=== PATIENT | female | born 1995 | race African-American/Black ===

== ENCOUNTER 2023-05-06 09:06 | Emergency (ER) | payer MEDICAID ==
[~2023-05-06] VITALS: Ht 165.1 cm; Wt 78.5 kg
[2023-05-06 09:11] VITALS: BP 144/100; PULSE 58; RESP 20; TEMP 97.8; O2SAT 100
[2023-05-06 09:31] VITALS: O2SAT 100
[2023-05-06] MEDS ORDERED: ONDANSETRON 4 MG/2 ML VIAL IVP ONE (10:35)
[2023-05-06] MEDS ORDERED: NACL 0.9% 1,000 ML IV SCH (10:35)
[2023-05-06] MEDS ORDERED: KETOROLAC 30 MG/ML VIAL IVP ONE (10:35)
[2023-05-06 10:51] LABS: APPEARANCE,URINE CLEAR (CLEAR); BILIRUBIN,URINE NEGATIVE (NEGATIVE); BLOOD, URINE NEGATIVE (NEGATIVE); COLOR,URINE YELLOW (YELLOW); LEUKOCYTE ESTERASE ,URINE NEGATIVE (NEGATIVE); NITRITE, URINE NEGATIVE (NEGATIVE); PH,URINE 8.5 (5.0-9.0); PROTEIN,URINE NEGATIVE (NEGATIVE); UGLUCOSE NEGATIVE (NEGATIVE); UROBILINOGEN,URINE 0.2 EU/dL (0.2 - 1)
[2023-05-06 11:32] VITALS: O2SAT 100
[2023-05-06 11:47] LABS: BASOPHILS % (AUTO) 0.3 % (0.0-2.0); EOSINOPHILS % (AUTO) 0.7 % (0.0-4.0); HEMATOCRIT 36.1 % (36-48); HEMOGLOBIN 12.1 g/dL (12.0-16.0); LYMPHOCYTES # (AUTO) 1.9 K/uL (2.5-16.5); LYMPHOCYTES % (AUTO) 40.2 % (20.5-51.1); MEAN CORPUSCULAR HEMOGLOBIN 30 pg (27-31); MEAN CORPUSCULAR HGB CONC 33 g/dL (33-37); MEAN CORPUSCULAR VOLUME 90.4 fL (80-94); MONOCYTES # (AUTO) 0.3 K/uL (0.8-1.0); NEUTROPHILS # (AUTO) 2.5 K/uL (1.8-7.7); NEUTROPHILS % (AUTO) 52.8 % (42.2-75.2); PLATELET COUNT (AUTO) 281 K/uL (140-450); RED BLOOD CELL COUNT(AUTO) 3.99 MIL/uL (4.20-5.40); RED CELL DISTRIBUTION WIDTH 13.5 % (11.6-13.7); WHITE BLOOD COUNT (AUTO) 4.8 K/uL (4.8-10.8)
[2023-05-06 12:06] LABS: ALBUMIN 3.6 g/dL (3.4-5.0); CALCIUM 8.1 mg/dL (8.5-10.1); CARBON DIOXIDE 27.3 mmol/L (21-32); CREATININE 0.7 mg/dL (0.6-1.3); POTASSIUM 4.3 mmol/L (3.5-5.1); TOTAL BILIRUBIN 0.4 mg/dL (0.0-1.0); TOTAL PROTEIN, SERUM 7.4 g/dL (6.4-8.2)
[2023-05-06 12:14] LABS: LACTIC ACID 0.8 mmol/L (0.4-2.0)
[2023-05-06] MEDS ORDERED: ONDA-188 PO (13:01)
[2023-05-06 13:32] VITALS: BP 132/94; PULSE 61; RESP 16; TEMP 97.8
[2023-05-06 13:36] VITALS: O2SAT 100
== END 2023-05-06 14:06 | disposition home or self-care (01) ==
LOC: MED 09:06
DX: R10.2 Pelvic and perineal pain (principal); I10 Essential (primary) hypertension; Z88.0 Allergy status to penicillin; Z79.899 Other long term (current) drug therapy
CPT/HCPCS: 36415; 76830; 80053; 81003; 81025; 83605; 85025; 87040; 87491; 93976; 96361; 96374; 96375; 99285; J1885; J2405; J7030; Q0092